=== PATIENT | male | born 1990 | race Two or more races ===

== ENCOUNTER 2020-10-26 16:07 | Emergency (ER) | payer OTHER, SELFPAY ==
[~2020-10-26] VITALS: Ht 180.3 cm; Wt 77.5 kg
[2020-10-26] MEDS ORDERED: LIDOCAINE-MPF 1%, 5ML INFIL ONE (16:30)
[2020-10-26] MEDS ORDERED: DIPH,PERTUSS(ACELL),TET VAC/PF 0.5 ML IM-VACC ONE ×2 (16:30→18:11)
--- NOTE | 2020-10-26 17:52 | NUR ---
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
--- NOTE | 2020-10-26 17:53 | NUR ---
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
--- NOTE | 2020-10-26 17:55 | NUR ---
PATIENT WALKED BACK FROM TRIAGE WITH CHIEF C/O RIGHT THUMB LACERATION. PER PATIENT HE CUT THUMB AT WORK ON A KNIFE AROUND 1545. THUMB WRAPPED IN GAUZE, NOT SOAKED THROUGHT WITH BLOOD. NADN,CALL LIGHT WITHIN REACH.
--- NOTE | 2020-10-26 18:18 | NUR ---
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
--- NOTE | 2020-10-26 18:45 | NUR ---
REPORT RECEIVED FROM MARY SETH, PT CARE TRANSFERRED AT THIS TIME. PT NAD, RESTING ON GURNEY, APPEARS COMFORTABLE, VSS, BED IN LOWEST, RAILS ENGAGED, CALL LIGHT ON LAP, WCTM.
[2020-10-26] MEDS ORDERED: LIDOCAINE-MPF 1%, 5ML ONE (18:48)
[2020-10-26 19:16] VITALS: BP 125/76
--- NOTE | 2020-10-26 19:16 | NUR ---
Patient given discharge instructions and they have confirmed that they understand the instructions. Patient ambulatory with steady gait. nad, denies additional needs, all questions answered appropriately. no personal belongings left in room after dc.
[2020-10-26] MEDS ORDERED: NEOSPORIN OINT. PKT 1 PACKET ONE (19:21)
== END 2020-10-26 19:36 | disposition home or self-care (01) ==
LOC: ED 19:30
DX: S61.101A Unspecified open wound of right thumb with damage to nail, initial encounter (principal); X58.XXXA Exposure to other specified factors, initial encounter; Y93.89 Activity, other specified; Y92.89 Other specified places as the place of occurrence of the external cause; Y99.8 Other external cause status
CPT/HCPCS: 12041; 90471; 90715; 99284